=== PATIENT | female | born 1945 | race Caucasian/White ===

== ENCOUNTER 2020-06-10 09:52 | Emergency (ER) | payer MEDICARE, SELFPAY ==
--- NOTE | ~2020-06-10 | XR_ITS ---
EXAMINATION: XR knee LT min 4V DATE: 06/10/2020 10:28 INDICATION: Posttraumatic left knee pain with flexion and extension TECHNIQUE: Anteroposterior, 2 oblique and crosstable lateral views of the left knee were obtained COMPARISON: None. FINDINGS: Alignment is normal. No fracture. Chondrocalcinosis and small to moderate sized marginal osteophytes . There are also small patellar marginal osteophytes. Moderate-sized left knee joint effusion without layering lipohemarthrosis. Soft tissues are unremarkable. IMPRESSION: 1. No fracture. 2. Moderate-sized left knee joint effusion. 3. Chondrocalcinosis and at least mild tricompartmental osteoarthritis. Reviewed, dictated and finalized at location A. DISTRIBUTOR
--- NOTE | 2020-06-10 09:59 | ED.LOWEXIN ---
HPI - Extremity Injury (Lower) General Chief Complaint: Extremity Injury, Lower Stated Complaint: left knee pain Time Seen by Provider: 06/10/20 09:59 Source: patient Mode of arrival: ambulatory Limitations: no limitations History of Present Illness HPI Narrative: Patient is a 74-year-old female who presents complaining of left knee pain. Patient reports trip and fall last p.m. She reports taking [place] 7.5mg x2 without relief. Patient reports pain with ambulation. She denies all other complaints or injuries from the fall. She reports she is unable to take ibuprofen. Related Data Home Medications Medication Instructions Recorded Confirmed amlodipine 06/10/20 carvedilol 06/10/20 dextroamphetamine-amphetamine PO 06/10/20 duloxetine mg PO 06/10/20 folic acid-vit B6-vit B12 tablet 06/10/20 [Virt-Nery] hydrocodone-acetaminophen 06/10/20 losartan 06/10/20 pravastatin 06/10/20 pregabalin 06/10/20 progesterone micronized mg 06/10/20 ropinirole mg 06/10/20 spironolactone 06/10/20 thyroid (pork) [[place] Thyroid] 06/10/20 Allergies Allergy/AdvReac Type Severity Reaction Status Date / Time metoclopramide Allergy Unknown Verified 01/15/18 15:32 PROCHLORPERAZINE EDISYLATE Allergy Mild Uncoded 01/15/18 15:32 PROCHLORPERAZINE MALEATE Allergy Mild Uncoded 01/15/18 15:32 Review of Systems Review of Systems: Narrative: CONSTITUTIONAL: Denies fever, chills, or sweats. EYES: Denies visual changes, redness, or discharge. ENT: Denies rhinorrhea, congestion, sore throat, or otalgia. CARDIOVASCULAR: Denies chest pain, palpitations, or edema. RESPIRATORY: Denies cough or dyspnea. GASTROINTESTINAL: Denies abdominal pain, nausea, vomiting, or diarrhea. GENITOURINARY: Denies dysuria or hematuria. SKIN: Denies rash or itching. MUSCULOSKELETAL: Left knee pain NEUROLOGIC: Denies headache, numbness, dizziness, or weakness. PSYCHIATRIC: Denies anxiety or depression. [facility] Past Medical History Medical History Back pain GERD (gastroesophageal reflux disease) Peripheral neuropathy Sjogrens syndrome Systemic lupus erythematosus Surgical History Surgical History History of hysterectomy Exam Narrative: Exam Narrative: GENERAL: Well-appearing, well-nourished, and in no acute distress. HEAD: Normocephalic, atraumatic. EYES: No redness or drainage. ENT: Mucous membranes pink and moist. CHEST: No respiratory distress. ss. EXTREMITIES: Normal range of motion. Tenderness with palpation, mild edema, small amount of bruising noted. SKIN: Warm, dry, no rash. NEURO: No focal deficits. Alert and oriented x3. Gait steady. PSYCH: Normal affect. No signs of depression or anxiety. MDM - Extremity Injury (Lower) MDM Narrative Medical decision making narrative: Patient has no fracture or dislocation per x-ray. Discussed with with patient that she has a contusion. Discussed rest, ice, elevation and pain control. Sravan wrap applied for comfort. Patient to follow-up with her PCP in 3 to 5 days if symptoms persist. Differential Diagnosis Differential diagnosis: Likely other (Fracture, sprain, strain, contusion) Imaging Data Radiologist's impression: ITS Impressions Knee X-Ray 06/10/20 10:50 IMPRESSION: 1. No fracture. 2. Moderate-sized left knee joint effusion. 3. Chondrocalcinosis and at least mild tricompartmental osteoarthritis. Critical Care Time Critical Care Time Critical Care Time: No Discharge Plan Discharge Clinical Impression: Contusion of knee, left Qualifiers: Encounter type: initial encounter Qualified Code(s): S80.02XA - Contusion of left knee, initial encounter Patient Disposition: Home, Self-Care Condition: Stable Instructions: Knee Pain (ED), Swollen Joint (ED) Additional Instructions: Rest, ice, and elevate knee. Use your cane as needed. Sravan wrap can be u
[2020-06-10 10:05] VITALS: BP 116/62; PULSE 81; RESP 16; TEMP 36.6; O2SAT 100
== END 2020-06-10 11:20 | disposition home or self-care (01) ==
PROVIDERS: Emergency Provider Nurse Practitioner; PCP Internal Medicine
DX: S80.02XA Contusion of left knee, initial encounter (principal); W01.0XXA Fall on same level from slipping, tripping and stumbling without subsequent striking against object, initial encounter; K21.9 Gastro-esophageal reflux disease without esophagitis; G62.9 Polyneuropathy, unspecified; M35.00 Sjogren syndrome, unspecified; M32.9 Systemic lupus erythematosus, unspecified
CPT/HCPCS: 73564; 99213; G0463

== ENCOUNTER 2022-02-02 13:02 | Outpatient (CLI) | payer MEDICARE, SELFPAY ==
[2022-02-02 13:58] LABS: Anion Gap 8 mmol/L (8-16); Blood Urea Nitrogen 14 mg/dL (7-17); Calcium 9.2 mg/dL (8.4-10.2); Carbon Dioxide 30 mmol/L (22-30); Chloride 100 mmol/L (98-107); Estimated Glomerular Filt Rate > 60; Glucose 103 mg/dL (65-110); Potassium 4.8 mmol/L (3.4-5.0); Sodium 138 mmol/L (137-145)
== END 2022-02-02 13:03 | disposition home or self-care (01) ==
PROVIDERS: Anesthesiology; PCP Internal Medicine; Visit Provider Orthopaedic Surgery
DX: I10 Essential (primary) hypertension (principal); Z79.899 Other long term (current) drug therapy; Z01.818 Encounter for other preprocedural examination
CPT/HCPCS: 36415; 80048

== ENCOUNTER 2022-02-06 00:06 | Day surgery (SDC) | payer MEDICARE, SELFPAY ==
[2022-02-01 12:47] VITALS: BMI 35.6
--- NOTE | 2022-02-01 12:58 | PC.NURSE ---
Report to the Outpatient Waiting Room, entrance under the green pavilion located off [facility], at time _0700_ on date _[id number]_. OR Time: _0900_. - You and your visitor will be asked to self-screen and do not enter if you have any COVID symptoms. - Only one visitor and NO children visitors are allowed at this time. - The patient visitor is requested to leave or wait in car when not with patient due to restrictions. - A mask is required within the hospital. Patients may have clear liquids (water, carbonated beverages, clear teas, apple juice) until 3 hours prior to surgery with a maximum of 20 ounces. - No food from midnight until time of surgery Take the following medications with a SIP of water the morning of surgery: ___Thyroid and Carvidilol Medications to discontinue per physician ___All vitamins and supplements Date to take last fara____[id number] Please no make-up, nail luxembourger, hairspray, perfume, deodorant, or body powder the day of surgery. No jewelry (including any body piercings) or valuables the day of surgery, leave them at home. Please take a shower or bath the night before, or the morning of, surgery with an antibacterial soap. Wear comfortable, loose fitting clothing. - Jewelry must be removed prior to entering the operating room. Rings and piercings that are not removed may be cut off. - The hospital will not accept responsibility for valuables. - Please leave all valuables, including medications, at home the day of surgery. If you are going home after surgery, a licensed electric lift truck driver must drive you home. - NO public transportation without another adult. - We recommend that an adult stay with you for 24 hours following discharge. - We also recommend that you do not drive, make important decision, drink alcoholic beverages, or take any drugs that were not prescribed by your health care provider for at least 24 hours after your discharge time. Follow any additional instructions given to you from your surgeon. If you or anyone in your household have experienced Covid symptoms in the past week, please notify your surgeon or the nurse liaison at the phone number below for possible testing. Telephone instructions given to _Patient___and asked if any additional questions and then verbalized understanding. Patient advised to call surgeon office or pre surgery nurse liaison [phone] if any additional questions.
[2022-02-06] MEDS: LACTATED RINGERS 1,000 ML 30 ML IV CONT (07:45)
[2022-02-06] MEDS: ACETAMINOPHEN 500 MG TABLET 1000 MG PO (07:45)
--- NOTE | 2022-02-06 07:55 | WPDANESEPPF ---
Anes - Initial Pre Proc Eval Procedure: Operation Date: 02/06/22 09:00 Proposed Procedures p Examination Under Anesthesia with Manipulation Right Shoulder, Injection Right Shoulder - Ruben Morrison MD Date/Time: 02/06/22 07:55 Surgeon: Ruben Morrison MD Pre Op Diagnosis: Right Frozen Shoulder Patient Data Age: 76 Gender: F Height: 1.52 m Weight: 82.7 kg Allergies Allergy/AdvReac Type Severity Reaction Status Date / Time haloperidol [From Haldol] Allergy Intermediate Jittery Verified 02/01/22 12:40 prochlorperazine Allergy Intermediate Jittery Verified 02/01/22 12:40 [From Compazine] metoclopramide Allergy Unknown Unknown Verified 02/01/22 12:40 Home Medications Medication Instructions Recorded Confirmed Type carvedilol 6.25 mg tablet 6.25 mg PO BID 06/10/20 02/01/22 History folic acid-vit B6-vit B12 2.2 1 tablet PO DAILY 06/10/20 02/01/22 History mg-25 mg-1 mg tablet (Virt-Nery) hydrocodone 7.5 mg-acetaminophen 1 tablet PO HS PRN Pain 06/10/20 02/01/22 History 325 mg tablet losartan 100 mg tablet 100 mg PO HS 06/10/20 02/01/22 History ropinirole 1 mg tablet 1 mg PO HS 06/10/20 02/01/22 History spironolactone 25 mg tablet 25 mg PO DAILY 06/10/20 02/01/22 History thyroid (pork) 90 mg tablet 90 mg PO QAM 06/10/20 02/01/22 History ([place] Thyroid) amphetamine sulfate 20 mg 20 mg PO BID 12/20/21 02/01/22 History disintegrating tablet aspirin 325 mg tablet 325 mg PO DAILY 12/20/21 02/01/22 History cholecalciferol (vitamin D3) 50 50 mcg PO DAILY 12/20/21 02/01/22 History mcg (2,000 unit) tablet cyclosporine 0.05 % eye drops 1 drp EACH EYE Q12H 12/20/21 02/01/22 History (Restasis MultiDose) evolocumab 140 mg/mL subcutaneous 140 mg subcut ONCE 12/20/21 02/01/22 History pen injector (Repatha SureClick) hydroxychloroquine 100 mg tablet 100 mg PO BID 12/20/21 02/01/22 History lutein 20 mg tablet 20 mg PO DAILY 12/20/21 02/01/22 History omega-3 fatty acids 500 mg capsule 500 mg PO DAILY 12/20/21 02/01/22 History pantoprazole 40 mg tablet,delayed 40 mg PO QAM 12/20/21 02/01/22 History release vitamin E (dl, acetate) 180 mg 180 mg PO DAILY 12/20/21 02/01/22 History (400 unit) capsule coenzyme Q10 100 mg capsule 100 mg PO DAILY 02/01/22 02/01/22 History (CoQ-10) zinc 50 mg tablet 50 mg PO DAILY 02/01/22 02/01/22 History Patient hx anesthesia problems: none Family hx anesthesia problems: other (son 50 yrs ago under local [facility]) Results Review: All pre-operative results and documents have been reviewed as part of the pre-operative evaluation. [facility] Past Medical History Medical History Adhesive capsulitis of right shoulder Back pain CAD (coronary artery disease) CHF (congestive heart failure) GERD (gastroesophageal reflux disease) History of blood clots History of breast implant removal History of stroke IBS (irritable bowel syndrome) Lupus Peripheral neuropathy Right shoulder pain Sjogrens syndrome Systemic lupus erythematosus Surgical History Surgical History History of abdominoplasty History of breast augmentation History of eye surgery History of hysterectomy History of laminectomy History of left knee replacement Family History Family History Other Cancer Cerebrovascular accident Depression Diabetes mellitus Heart disease Hypertension Social History Social History Smoking status: Never smoker Alcohol intake: current Substance use: never Living arrangements: with family Spiritual care concerns: No Anes - Eval Final PreProcedure Day of Procedure 02/06/22 07:55 Patient weight: obese Heart: regular rate and rhythm Lungs: clear to auscultation Airway: Mallampati scale class II Neurological
[2022-02-06 08:01] VITALS: BP 129/69; PULSE 74; RESP 18; TEMP 36.5; O2SAT 99
--- NOTE | 2022-02-06 08:37 | WPDHPUPDATE1 ---
History and Physical Update Update Date/Time: 02/06/22 08:37 History and Physical has been reviewed, including an updated exam of the patient. There are NO changes in the patient's condition. Risks, benefits, and alternatives have been discussed and questions answered. Patient agrees to proceed with procedure.
--- NOTE | 2022-02-06 08:38 | WPDHPUPDATE1 ---
History and Physical Update Update Date/Time: 02/06/22 08:38 History and Physical has been reviewed, including an updated exam of the patient. There are NO changes in the patient's condition. Risks, benefits, and alternatives have been discussed and questions answered. Patient agrees to proceed with procedure.
[2022-02-06] MEDS: LIDOCAINE HCL 1% PF INJ 5 ML VIAL 2 ML INFILTRATE (09:03)
[2022-02-06 09:13] VITALS: BP 95/55; PULSE 63; RESP 16; O2SAT 100
--- NOTE | 2022-02-06 09:22 | P.OP_ITS ---
Procedure Note - Detailed Date of Procedure 02/06/22 Pre-op Diagnosis Right Frozen Shoulder Post-op Diagnosis Same Procedure Performed Evaluation under anesthesia with manipulation of right shoulder and intra- articular injection Surgeon Ruben Morrison MD Anesthesia General Description of Procedure The patient was identified and proper site identified. She was taken back to the operating room on the [facility]. After general anesthetic induction, the right shoulder was evaluated. A gentle manipulation was carried out. The shoulder was then injected intra-articularly with 2 milliliters of 1% lidocaine and 20 milligrams of Kenalog without incident. She tolerated the procedure without difficulty was taken back to recovery area in stable condition. Below are the pre and post-manipulation ranges of motion: pre post Elevation 140 170 IR 45 60 ER 90 80 There were no known intraoperative complications Estimated Blood Loss 0 Drains No Packing No Pathology None sent Complications No immediate complications Condition Stable Disposition PACU
[2022-02-06 09:33] VITALS: BP 109/62; PULSE 58; RESP 16; O2SAT 96
[2022-02-06 09:40] VITALS: BP 123/69; PULSE 58; RESP 16; O2SAT 98
[2022-02-06] MEDS: oxyCODONE HCL (*CRX) 5 MG TAB IR PO (10:06)
[2022-02-06 10:10] VITALS: BP 123/60; PULSE 61; RESP 16; O2SAT 98
== END 2022-02-06 10:30 | disposition home or self-care (01) ==
PROVIDERS: PCP Internal Medicine; Visit Provider Orthopaedic Surgery
PROC: (CPT 23700; principal; 2022-02-06 09:00)
DX: M75.01 Adhesive capsulitis of right shoulder (principal); I11.0 Hypertensive heart disease with heart failure; I25.10 Atherosclerotic heart disease of native coronary artery without angina pectoris; M32.9 Systemic lupus erythematosus, unspecified; K58.9 Irritable bowel syndrome, unspecified; Z86.73 Personal history of transient ischemic attack (TIA), and cerebral infarction without residual deficits; K21.9 Gastro-esophageal reflux disease without esophagitis; G62.9 Polyneuropathy, unspecified; Z79.82 Long term (current) use of aspirin; E66.9 Obesity, unspecified; Z68.35 Body mass index [BMI] 35.0-35.9, adult
CPT/HCPCS: 23700; A9270; J2250; J2704; J3010; J3301; J7120

== ENCOUNTER 2022-02-28 21:46 | Emergency (ER) | payer MEDICARE, SELFPAY ==
--- NOTE | ~2022-02-28 | CT_ITS ---
EXAMINATION:CT diagnostic chest wo con DATE: 02/28/2022 23:19 INDICATION: Left rib pain. Fall. TECHNIQUE: Computed tomography (CT) of the chest was performed without intravenous contrast. Automate d exposure control and iterative reconstruction technique were employed. The dose-length product (DLP ) was 329.62 mGy-cm. COMPARISON: Chest single view 02/28/2022 FINDINGS: The lungs demonstrate mild atelectasis. No pleural effusion. The heart size is normal. No p ericardial effusion. There are coronary artery calcifications. There is an electronic implant in left anterior chest wall. There is a small sliding hiatal hernia. There are is a gallstone in the gallbla dder, which is normal in size. There is asymmetric enlargement of the left serratus anterior muscle. There is thoracic kyphosis with mild chronic anterior wedging of multiple vertebral bodies. There is severe mid thoracic spondylosis. IMPRESSION: 1. Asymmetric enlargement of the left serratus anterior muscle, which may be a muscle strain or contu fei. 2. Small sliding hiatal hernia. Reviewed, dictated and finalized at location A. IMPRESSION: 1. Asymmetric enlargement of the left serratus anterior muscle, which may be a muscle strain or contusion. 2. Small sliding hiatal hernia.
--- NOTE | ~2022-02-28 | XR_ITS ---
EXAM: [id number] DATE: 02/28/2022 22:21 HISTORY: fall, rib pain . COMPARISON: None available. FINDINGS: Loop recorder. Senescent lung changes. Aortic arch calcification. Scoliosis. Decreased min eralization. No fracture or dislocation. No lytic or blastic lesion. Degenerative AC joint and glenoh umeral joint change. No erosion or periosteal change. Soft tissues within normal limits. IMPRESSION: No acute osseous finding in the left ribs. Reviewed, dictated and finalized at location K.
[2022-02-28 22:02] VITALS: BP 159/70; PULSE 81; RESP 16; TEMP 36.4; O2SAT 98
--- NOTE | 2022-02-28 23:37 | ED.FALL ---
HPI - Fall General Chief Complaint: Fall Stated Complaint: fall, rib pain Time Seen by Provider: 02/28/22 22:54 Source: patient and RN notes reviewed Mode of arrival: ambulatory Limitations: no limitations History of Present Illness HPI Narrative: This is a 76 year old male who presents for evaluation of left rib pain s/p fall. Patient states she accidentally slipped into her pool, and she hit her left flank on the stairs in the pool. She was having significant pain to left ribs and it is worse with bruising. She denies hitting her head or LOC. SHe states aspirin 325. She denies shortness of breath or dizziness. She reported pain 10/10. and she has not taken any thing for pain. Related Data Home Medications Medication Instructions Recorded Confirmed carvedilol 6.25 mg tablet 6.25 mg PO BID 06/10/20 02/06/22 folic acid-vit B6-vit B12 2.2 1 tablet PO DAILY 06/10/20 02/06/22 mg-25 mg-1 mg tablet (Virt-Nery) hydrocodone 7.5 mg-acetaminophen 1 tablet PO HS PRN Pain 06/10/20 02/06/22 325 mg tablet losartan 100 mg tablet 100 mg PO HS 06/10/20 02/06/22 ropinirole 1 mg tablet 1 mg PO HS 06/10/20 02/06/22 spironolactone 25 mg tablet 25 mg PO DAILY 06/10/20 02/06/22 thyroid (pork) 90 mg tablet 90 mg PO QAM 06/10/20 02/06/22 ([place] Thyroid) amphetamine sulfate 20 mg 20 mg PO BID 12/20/21 02/06/22 disintegrating tablet aspirin 325 mg tablet 325 mg PO DAILY 12/20/21 02/06/22 cholecalciferol (vitamin D3) 50 50 mcg PO DAILY 12/20/21 02/06/22 mcg (2,000 unit) tablet cyclosporine 0.05 % eye drops 1 drp EACH EYE Q12H 12/20/21 02/06/22 (Restasis MultiDose) evolocumab 140 mg/mL subcutaneous 140 mg subcut ONCE 12/20/21 02/06/22 pen injector (Kate Davis) hydroxychloroquine 100 mg tablet 100 mg PO BID 12/20/21 02/06/22 lutein 20 mg tablet 20 mg PO DAILY 12/20/21 02/06/22 omega-3 fatty acids 500 mg capsule 500 mg PO DAILY 12/20/21 02/06/22 pantoprazole 40 mg tablet,delayed 40 mg PO QAM 12/20/21 02/06/22 release vitamin E (dl, acetate) 180 mg 180 mg PO DAILY 12/20/21 02/06/22 (400 unit) capsule coenzyme Q10 100 mg capsule 100 mg PO DAILY 02/01/22 02/06/22 (CoQ-10) zinc 50 mg tablet 50 mg PO DAILY 02/01/22 02/06/22 Allergies Allergy/AdvReac Type Severity Reaction Status Date / Time haloperidol [From Haldol] Allergy Intermediate Jittery Verified 02/06/22 07:57 prochlorperazine Allergy Intermediate Jittery Verified 02/06/22 07:57 [From Compazine] metoclopramide Allergy Unknown Unknown Verified 02/06/22 07:57 ibuprofen AdvReac Unknown HX STROKE Verified 02/06/22 07:59 Review of Systems Review of Systems: All systems reviewed & are unremarkable except as noted in HPI and below Constitutional: Constitutional: Denies chills, Denies fatigue and Denies fever(s) Cardiovascular: Comments: + rib pain PMFSH Past Medical History Medical History Adhesive capsulitis of right shoulder Back pain CAD (coronary artery disease) CHF (congestive heart failure) GERD (gastroesophageal reflux disease) History of blood clots History of breast implant removal History of stroke IBS (irritable bowel syndrome) Lupus Peripheral neuropathy Right shoulder pain Sjogrens syndrome Systemic lupus erythematosus Surgical History Surgical History History of abdominoplasty History of breast augmentation History of eye surgery History of hysterectomy History of laminectomy History of left knee replacement Family History Family History Other Cancer Cerebrovascular accident Depression Diabetes mellitus Heart disease Hypertension Social History Social History Smoking status: Never smoker Alcohol intake: current Substance use: never Spiritual care concerns: No Exam
[2022-02-28 23:43] LABS: Basophils Percent Auto 0.3 % (0.2-1.2); Eosinophils Absolute Auto 0.2 K/mm3 (0-0.3); Eosinophils Percent Auto 2.6 % (0-4.4); Hematocrit 39.3 % (37.0-47.0); Hemoglobin 12.5 g/dL (12.0-15.0); Immature Granulocyte Absolute 0.02 K/mm3 (0.00-0.031); Immature Granulocyte Percent A 0.3 % (0-0.5); Lymphocytes Absolute Auto 1.66 K/mm3 (0.9-3.2); Lymphocytes Percent Auto 27.4 % (18.3-44.2); Mean Corpuscular HGB Conc 31.8 g/dl (32-36); Mean Corpuscular Volume 94.2 fl (80-100); Mean Platelet Volume 8.9 fl (7.4-10.4); Monocytes Absolute Auto 0.5 K/mm3 (0.1-0.6); Monocytes Percent Auto 8.1 % (2.6-8.5); Neutrophils Absolute Auto 3.7 K/mm3 (1.3-6.7); Neutrophils Percent Auto 61.3 % (45.5-73.1); Platelet Count Result 223 k/mm3 (150-375); Red Blood Count 4.17 M/mm3 (4.2-5.4); Red Cell Distribution Width 12.8 % (11.5-14.5); White Blood Count 6.1 K/mm3 (4.5-10.0)
[2022-02-28 23:52] LABS: Alanine Aminotransferase 24 U/L (6-35); Albumin Level 4.2 g/dL (3.5-5.1); Alkaline Phosphatase 71 U/L (38-126); Anion Gap 9 mmol/L (8-16); Aspartate Amino Transferase 33 U/L (14-36); Bilirubin,Total 0.2 mg/dL (0.2-1.3); Blood Urea Nitrogen 17 mg/dL (7-17); Calcium 8.8 mg/dL (8.4-10.2); Carbon Dioxide 29 mmol/L (22-30); Chloride 101 mmol/L (98-107); Estimated CRCL calculation 50 ml/min; Estimated Glomerular Filt Rate > 60; Glucose 110 mg/dL (65-110); Potassium 3.8 mmol/L (3.4-5.0); Sodium 139 mmol/L (137-145)
[2022-02-28] MEDS: ACETAMINOPHEN 500 MG TABLET 1000 MG PO (23:57)
== END 2022-03-01 00:15 | disposition home or self-care (01) ==
PROVIDERS: Emergency Provider General Practice; PCP Internal Medicine
DX: S20.212A Contusion of left front wall of thorax, initial encounter (principal); I25.10 Atherosclerotic heart disease of native coronary artery without angina pectoris; I50.9 Heart failure, unspecified; K21.9 Gastro-esophageal reflux disease without esophagitis; M32.9 Systemic lupus erythematosus, unspecified; Z86.73 Personal history of transient ischemic attack (TIA), and cerebral infarction without residual deficits; W16.032A Fall into swimming pool striking wall causing other injury, initial encounter
CPT/HCPCS: 36415; 71101; 71250; 80053; 85025; 99284; A9270

== ENCOUNTER 2022-08-05 13:48 | Emergency (ER) | payer MEDICARE, SELFPAY ==
--- NOTE | ~2022-08-05 | XR_ITS ---
XR knee RT 3V DATE: 08/05/2022 14:21 INDICATION: Fall. Right knee pain. TECHNIQUE: AP, lateral, sunrise views COMPARISON: None FINDINGS: There is osteopenia. There is lateral subluxation and severe osteoarthritic change at the patellofemoral joint. There is osteoarthritic periarticular spurring at the medial lateral compartment the joint spaces are relatively intact. There is chondrocalcinosis at the medial and lateral compartments. No fracture or dislocation or joint effusion. No periosteal reaction or bone destruction. No radiopaq ue interarticular loose body is evident. IMPRESSION: Tricompartment osteoarthritis Chondrocalcinosis Osteopenia Reviewed, dictated and finalized at location A. CLEANER
[2022-08-05 14:02] VITALS: BP 161/74; PULSE 92; RESP 16; TEMP 36.4; O2SAT 100
[2022-08-05 14:03] VITALS: BP 161/74; PULSE 92; RESP 16; TEMP 36.4; O2SAT 100
--- NOTE | 2022-08-05 14:17 | ED.LOWEXIN ---
HPI - Extremity Injury (Lower) General Chief Complaint: Extremity Injury, Lower Stated Complaint: R KNEE INJURY Time Seen by Provider: 08/05/22 14:17 Source: patient, RN notes reviewed and old records reviewed Mode of arrival: ambulatory Limitations: no limitations History of Present Illness HPI Narrative: 76 year old female who fell Sunday on an uneven sidewalk while taking out trash bags from a house and fell onto both knees and hands. Patient has small abrasion to the house aspect of right hand and reports pain to lateral aspect of her right knee and some bruising to anterior ecsobar area right leg. Patient does have some pain medication at home for her generalized arthritis pain and has been taking this medication to decrease her pain, she has been using a walker to aid with ambulation.Pin increases with weight bearing to her right leg. MD complaint: knee injury and other (right lateral knee pain) Onset (ago): day(s) (6) Type of Injury: blunt Place: street/outdoors Related Data Home Medications Medication Instructions Recorded Confirmed folic acid-vit B6-vit B12 2.2 1 tablet PO DAILY 06/10/20 08/05/22 mg-25 mg-1 mg tablet (Virt-Nery) hydrocodone 7.5 mg-acetaminophen 1 tablet PO HS PRN Pain 06/10/20 08/05/22 325 mg tablet losartan 100 mg tablet 100 mg PO HS 06/10/20 08/05/22 ropinirole 1 mg tablet 1 mg PO HS 06/10/20 08/05/22 thyroid (pork) 90 mg tablet 90 mg PO QAM 06/10/20 08/05/22 ([place] Thyroid) amphetamine sulfate 20 mg 20 mg PO BID 12/20/21 08/05/22 disintegrating tablet aspirin 325 mg tablet 325 mg PO DAILY 12/20/21 08/05/22 cholecalciferol (vitamin D3) 50 50 mcg PO DAILY 12/20/21 08/05/22 mcg (2,000 unit) tablet cyclosporine 0.05 % eye drops 1 drp EACH EYE Q12H 12/20/21 08/05/22 (Restasis MultiDose) evolocumab 140 mg/mL subcutaneous 140 mg subcut ONCE 12/20/21 08/05/22 pen injector (Kate Davis) hydroxychloroquine 100 mg tablet 100 mg PO BID 12/20/21 08/05/22 omega-3 fatty acids 500 mg capsule 500 mg PO DAILY 12/20/21 08/05/22 pantoprazole 40 mg tablet,delayed 40 mg PO QAM 12/20/21 08/05/22 release coenzyme Q10 100 mg capsule 100 mg PO DAILY 02/01/22 08/05/22 (CoQ-10) zinc 50 mg tablet 50 mg PO DAILY 02/01/22 08/05/22 Allergies Allergy/AdvReac Type Severity Reaction Status Date / Time haloperidol [From Haldol] Allergy Intermediate Jittery Verified 08/05/22 14:02 prochlorperazine Allergy Intermediate Jittery Verified 08/05/22 14:02 [From Compazine] metoclopramide Allergy Unknown Unknown Verified 08/05/22 14:02 ibuprofen AdvReac Unknown HX STROKE Verified 08/05/22 14:02 Review of Systems Review of Systems: CONSTITUTIONAL: Denies fever, chills, or sweats. CARDIOVASCULAR: Denies chest pain, palpitations, or edema. RESPIRATORY: Denies cough or dyspnea. SKIN: Denies rash or itching. Denies laceration or abrasions MUSCULOSKELETAL: Reports pain to the anterior and lateral aspect of right knee from fall she sustained on Sunday NEUROLOGIC: Denies numbness, or weakness. All systems reviewed & are unremarkable except as noted in HPI and below PMFSH Past Medical History Medical History (Updated 08/05/22 @ 14:51 by Sandra Lopez NP) Adhesive capsulitis of right shoulder Back pain CAD (coronary artery disease) CHF (congestive heart failure) GERD (gastroesophageal reflux disease) History of blood clots History of breast implant removal History of stroke IBS (irritable bowel syndrome) Lupus Peripheral neuropathy Right shoulder pain Sjogrens syndrome Systemic lupus erythematosus Surgical History Surgical History History of abdominoplasty History of breast augmentation History of eye surgery History of hysterectomy History of laminectomy History of left knee replacement Family History Family History Other Cancer Cerebrovascular accident Depression Diabetes
== END 2022-08-05 15:00 | disposition home or self-care (01) ==
PROVIDERS: Emergency Provider Registered Nurse; PCP Internal Medicine
DX: S80.01XA Contusion of right knee, initial encounter (principal); W19.XXXA Unspecified fall, initial encounter; M17.11 Unilateral primary osteoarthritis, right knee; I25.10 Atherosclerotic heart disease of native coronary artery without angina pectoris; I50.9 Heart failure, unspecified; K21.9 Gastro-esophageal reflux disease without esophagitis; Z86.73 Personal history of transient ischemic attack (TIA), and cerebral infarction without residual deficits; M32.9 Systemic lupus erythematosus, unspecified; G62.9 Polyneuropathy, unspecified; M35.00 Sjogren syndrome, unspecified; Z96.652 Presence of left artificial knee joint
CPT/HCPCS: 73562; 99213; G0463

== ENCOUNTER → 2022-08-22 10:28 | Outpatient (CLI) | payer MEDICARE, SELFPAY ==
--- NOTE | ~2022-08-22 | XR_ITS ---
Right Knee Technique: AP, lateral, and sunrise views were obtained. Clinical History: Pain Findings: No fracture or dislocation is seen. Osseous alignment is anatomic. Moderate tricompartmenta l degenerative change present. Chondrocalcinosis of the menisci noted. No joint effusion is seen. Impression: No fracture or dislocation. Moderate tricompartmental degenerative change. Chondrocalcinosis of the menisci. Reviewed, dictated and finalized at location M. Impression: No fracture or dislocation. Moderate tricompartmental degenerative change. Chondrocalcinosis of the menisci.
== END ==
PROVIDERS: PCP Internal Medicine
DX: M54.16 Radiculopathy, lumbar region (principal); M11.261 Other chondrocalcinosis, right knee
CPT/HCPCS: 73562

== ENCOUNTER 2022-10-26 10:19 | Outpatient (CLI) | payer MEDICARE, SELFPAY ==
--- NOTE | ~2022-10-26 | XR_ITS ---
XR foot RT standing 2V 10/26/2022 11:03 Indication: Systemic lupus erythematosus Procedure: 2 views right foot Comparison: No prior studies for comparison. Findings: There is a healed fifth metatarsal fracture. There is mild osteoarthritis of the first MTP joint. No acute fracture or traumatic malalignment. Lisfranc joint is intact. Impression: 1: Mild osteoarthritis of the right first MTP joint. Reviewed, dictated and finalized at location L. Impression: 1: Mild osteoarthritis of the right first MTP joint.
--- NOTE | ~2022-10-26 | XR_ITS ---
Bilateral Hands Technique: Bilateral PA, oblique, and lateral views, and ball-catcher's view were obtained. Clinical History: Osteoarthritis Findings: No acute fracture or dislocation is seen. Osseous alignment is anatomic. There is moderate degenerative change of the right fifth DIP joint. There is mild to moderate degenerative change diffu sely involving the DIP joints of the left hand. There is moderate to severe degenerative change at th e left first CMC joint. Soft tissues are unremarkable. Impression: Osteoarthritic changes of the distal interphalangeal joints, and left first CMC joint, as detailed ab ove. Reviewed, dictated and finalized at location M. Impression: Osteoarthritic changes of the distal interphalangeal joints, and left first CMC joint, as detailed above.
--- NOTE | ~2022-10-26 | XR_ITS ---
XR foot LT standing 2V 10/26/2022 11:03 Indication: Systemic lupus erythematosus axial Procedure: Left foot pain Comparison: 12/15/2016 Findings: Severe osteoarthritis of the first MTP joint. Lisfranc joint intact. Osteopenia. No acute f racture or traumatic malalignment. There is a healed there is no metatarsal fracture. There are mild degenerative changes of the midfoot. 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 Reviewed, dictated and finalized at location L. 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
[2022-10-26 11:33] LABS: Basophils Percent Auto 0.4 % (0.2-1.2); Eosinophils Absolute Auto 0.1 K/mm3 (0-0.3); Eosinophils Percent Auto 2.6 % (0-4.4); Hematocrit 40.4 % (37.0-47.0); Hemoglobin 12.7 g/dL (12.0-15.0); Immature Granulocyte Absolute 0.01 K/mm3 (0.00-0.031); Immature Granulocyte Percent A 0.2 % (0-0.5); Lymphocytes Absolute Auto 1.32 K/mm3 (0.9-3.2); Lymphocytes Percent Auto 26.8 % (18.3-44.2); Mean Corpuscular HGB Conc 31.4 g/dl (32-36); Mean Corpuscular Hemoglobin 29.1 pg (26-34); Mean Corpuscular Volume 92.4 fl (80-100); Mean Platelet Volume 9.3 fl (7.4-10.4); Monocytes Absolute Auto 0.4 K/mm3 (0.1-0.6); Monocytes Percent Auto 7.1 % (2.6-8.5); Neutrophils Absolute Auto 3.1 K/mm3 (1.3-6.7); Neutrophils Percent Auto 62.9 % (45.5-73.1); Platelet Count Result 221 k/mm3 (150-375); Red Blood Count 4.37 M/mm3 (4.2-5.4); Red Cell Distribution Width 12.5 % (11.5-14.5); White Blood Count 4.9 K/mm3 (4.5-10.0)
[2022-10-26 11:42] LABS: Uric Acid 3.9 mg/dL (2.5-7.5)
[2022-10-26 11:42] LABS: Creatinine Urine 131.9 mg/dL
[2022-10-26 11:44] LABS: Rheumatoid Factor < 12.0 IU/ML (<12)
[2022-10-26 11:45] LABS: CRP < 0.5 mg/dL (<1.0)
[2022-10-26 11:45] LABS: Total Protein Urine Random < 5 mg/dL; Ur Ttl Prot Creatinine Ratio < 0.04 mg/mg (0-0.20)
[2022-10-26 11:47] LABS: Complement C3 113 mg/dL (88-165)
[2022-10-26 12:15] LABS: Erythrocyte Sedimentation Rate 8 mm/hr (0-20)
[2022-11-01 05:23] LABS: Lupus dRVVT Screen 39 sec (<=45); PTT-LA Screen 31 sec (<=40)
[2022-11-01 18:12] LABS: SS-A >8.0; SS-B <1.0
[2022-11-01 19:30] LABS: SM Antibody <1.0; SM/RNP Antibody <1.0
[2022-11-01 23:22] LABS: Anti Cyclic Citrullinated Pept <16 Units (<20)
[2022-11-03 22:39] LABS: Anti Cardio Antibody IgM <2.0 MPL-U/mL (<20.0); Anti Cardiolipin Antibody IgG 2.2 GPL-U/mL (<20.0)
== END 2022-10-26 10:20 | disposition home or self-care (01) ==
PROVIDERS: PCP Internal Medicine; Visit Provider Internal Medicine
DX: M32.9 Systemic lupus erythematosus, unspecified (principal); G56.21 Lesion of ulnar nerve, right upper limb; M19.042 Primary osteoarthritis, left hand; M19.041 Primary osteoarthritis, right hand; M19.072 Primary osteoarthritis, left ankle and foot
CPT/HCPCS: 36415; 73130; 73620; 82570; 83520; 84156; 84550; 85025; 85613; 85652; 85730; 86038; 86140; 86146; 86147; 86160; 86200; 86225; 86235; 86430

== ENCOUNTER 2024-05-15 15:03 | Outpatient (CLI) | payer MEDICARE, SELFPAY ==
--- NOTE | ~2024-05-15 | MR_ITS ---
MRI of the lumbar spine Clinical History: Radiculopathy Technique: Axial T2-weighted images, and sagittal T1-weighted, T2-weighted, and and T2 fat-sat images were acquired. Following intravenous administration of 10 cc MultiHance gadolinium, T1-weighted fat- sat imaging was performed in the axial and sagittal planes. Findings: No acute fracture seen. There is minimal grade 1 anterolisthesis of L4 over L5. No suspicio us bone marrow signal abnormality seen. At L1-L2, there is no disc bulge or herniation. There is mild to moderate facet arthropathy. No centr al canal stenosis. There is mild to moderate bilateral neural foraminal narrowing. At L2-L3, there is disc bulge and severe facet arthropathy, resulting in moderate central canal steno sis. There is minimal right neural foraminal narrowing. Left neural foramen preserved. At L3-L4, there is mild disc bulge with severe facet arthropathy. There is mild central canal stenosi s. There is preservation of bilateral neural foramina. At L4-L5, there is advanced degenerative disc narrowing. There is diffuse disc bulge with severe face t arthropathy. No stan central canal stenosis. There is severe right neural foraminal narrowing. The re is mild to moderate left neural foraminal narrowing. At L5-S1, there is severe degenerative disc narrowing. There is diffuse disc bulge with severe left-s ided facet arthropathy and mild right facet arthropathy. No central canal stenosis. There is severe l eft neural foraminal narrowing. Right neural foramen preserved. Paravertebral soft tissues are unremarkable. No abnormal postcontrast enhancement identified. Impression: Moderate to advanced degenerative spondylitic changes, especially at L2-L3, L4-L5, and L5-S1. Please see details above. Reviewed, dictated and finalized at location M. CLERK Impression: Moderate to advanced degenerative spondylitic changes, especially at L2-L3, L4- L5, and L5-S1. Please see details above.
== END 2024-05-15 15:04 | disposition home or self-care (01) ==
LOC: MICIMG 15:04
PROVIDERS: PCP Nurse Practitioner Family; Visit Provider Nurse Practitioner Family
DX: M96.1 Postlaminectomy syndrome, not elsewhere classified (principal); M47.896 Other spondylosis, lumbar region; M47.897 Other spondylosis, lumbosacral region
CPT/HCPCS: 72158; A9577